=== PATIENT | female | born 1965 | race Hispanic/Latino ===

== ENCOUNTER 2019-05-08 07:53 | Day surgery (SDC) | payer OTHER, MEDICARE ==
[2019-05-08] VITALS (12 sets, daily range): BP systolic 119–162; BP diastolic 56–82
[~2019-05-08] VITALS: Ht 162.6 cm; Wt 49.9 kg
[~2019-05-08 07:53] MED LIST: SODIUM CHLORIDE 0.9% 1000ML 1,000 ML IV ONE
[2019-05-08] MEDS ORDERED: SODIUM CHLORIDE 0.9% 1000ML 1,000 ML IV ONE (08:42)
[2019-05-08] MEDS ORDERED: PROPOFOL 10 MG/ML 20ML VIAL IV ONE (09:13)
[2019-05-08] MEDS ORDERED: ALPR0.255 PO (09:32)
[2019-05-08] MEDS ORDERED: ESCI20TA36 PO (09:32)
[2019-05-08] MEDS ORDERED: BACL10TA PO (09:32)
== END 2019-05-08 10:30 | disposition home or self-care (01) ==
LOC: DAH 07:53 → ENDO 07:53 → EDSTATUS 09:15 → ENDO 10:30
PROVIDERS: ATTEND Surgery
DX: R13.10 Dysphagia, unspecified (principal); G12.21 Amyotrophic lateral sclerosis; E66.9 Obesity, unspecified; Z98.890 Other specified postprocedural states; Z90.710 Acquired absence of both cervix and uterus; Z79.899 Other long term (current) drug therapy
CPT/HCPCS: 43246; A4215; A4221; A4222; A4223; A4606; A4663; J2704; J7030 ×2